=== PATIENT | female | born 1935 | race Caucasian/White ===

== ENCOUNTER 2018-12-18 10:53 | Emergency (ER) | payer MEDICARE ==
[~2018-12-18] VITALS: Ht 160 cm; Wt 67.1 kg
--- OUTSIDE RECORDS SUMMARY | 2018-12-18 10:56 | XMS REPORT | Continuity of Care Document ---
Author Author [employer] Organization [employer] Address Unknown Phone Unavailable Care Team Providers Care Conveyancer Name Role Phone [email or web address] Unavailable Unavailable Problems Problem Status Onset Date Classification Date Reported Comments Source Ataxia, unspecified 08/12/2017 11/12/2017 [facility] DX: I83=JDGPAORCR AND GIDDINESS, G31.84= Active 07/31/2017 [facility] DX: OSTEOPOROSIS Active 06/11/2017 [facility] M85.80 OTHER SPECIFIED DISORDERS OF BONE Active 05/08/2015 [facility] Cobalamin deficiency2 Active 04/10/2014 Problem 09/12/2018 Data migrated from [employer] on 11/04/14. [facility] Osteopenia4 Active 04/10/2014 Problem 05/13/2015 Data migrated from [email or web address] on 11/04/14. [facility] BLE DX:RT ANKLE SWELLING Active 01/24/2013 [facility] Anxiety Active Problem 09/12/2018 [facility] Chronic kidney disease stage 31 Active Problem 09/12/2018 Data migrated from [email or web address] on 11/04/14. [facility] Depression Active Problem 09/12/2018 [facility] Fatigue Active Problem 09/12/2018 [facility] Gastroesophageal reflux disease3 Active Problem 09/12/2018 Data migrated from [employer] on 11/04/14. [facility] History of fall Active Problem 09/12/2018 [facility] Cognitive impairment Active Problem 09/12/2018 [facility] Medicare annual wellness visit, subsequent Active Problem 09/12/2018 [facility] Degenerative joint disease of knee, right Active Problem 09/12/2018 [facility] Osteoporosis Active Problem 09/12/2018 [facility] Encounter for immunization Active Problem 09/12/2018 [facility] Unsteady gait Active Problem 09/12/2018 [facility] Urinary incontinence Active Problem 09/12/2018 [facility] Vitamin D deficiency4 Active Problem 09/12/2018 Data migrated from [employer] on 11/04/14. [facility] Cough Active Problem 09/12/2018 [facility] Sore throat Active Problem 09/12/2018 [facility] Memory loss Active Problem 06/06/2017 [facility] Eructation Active Problem 06/06/2017 [facility] Need for prophylactic vaccination and inoculation against influenza Resolved Problem 05/13/2015 [facility] Vitamin D deficiency5 Active Problem 05/13/2015 Data migrated from [employer] on 11/04/14. [facility] Dizziness and giddiness 11/12/2017 [facility] Chronic sinusitis, unspecified 11/12/2017 [facility] OTH DISRD OF BONE DENSITY AND STRUCTURE, Active [facility] AGE-RELATED OSTEOPOROSIS W/O CURRENT PAT Active [facility] DIZZINESS AND GIDDINESS Active [facility] Medications Medication Details Route Status Patient Instructions Ordering Provider Order Date Source Vitamin B12 1000 mcg/mL injectable solution 1,000 microgram=1 mL, IM, qMonth, # 10 mL, 0 Refill(s), [id number] Active 07/04/2017 [facility] Ranitidine 150 MG Oral Tablet [Zantac] 150 mg=1 tab, PO, BID, # 180 tab, 0 Refill(s), Pharmacy: [id number] Active 07/04/2017 [facility] Allergies, Adverse Reactions, Alerts No Known Medication Allergies Immunizations Immunization Date Given Site Status Last Updated Comments Source influenza virus vaccine, inactivated<sup>1</sup> 06/09/2018 Right Deltoid completed [place] Result Comment: Patient waited 15 min with no reaction. [facility] influenza virus vaccine, inactivated<sup>2</sup> 06/03/2017 Left Deltoid completed [place] Result Comment: Patient waited 15 minutes, no reaction noted. [facility] influenza virus vaccine, inactivated<sup>1</sup> 06/03/2017 Left Deltoid completed [place] Result Comment: Patient waited 15 minutes, no reaction noted. [facility] influenza virus vaccine, inactivated 05/28/2016 Left Deltoid completed [place] [facility] influenza virus vaccine, inactivated 03/08/2015 Left Deltoid completed [facility] Hx influenza vaccine-unspecified<sup>5</sup> 04/10/2014 completed [place] Result Comment: done high dose. Migrated from OBS ; Data migrated from [employer] on 07/10/2015. [facility] Hx influenza vaccine-unspecified<sup>4</sup> 04/10/2014 completed GE Result Comment: done high dose. Migrated from OBS ; Data migrated from [employer] on 07/10/2015. [facility] influenza virus vaccine, inactivated<sup>3</sup> 04/10/2014 Left Deltoid completed GE Result Comment: fluzone high dose [[id number]]. Migrated from OBS ; Data migrated from [employer] on 07/10/2015. [facility] influenza virus vaccine, inactivated<sup>2</sup> 04/10/2014 Left Deltoid completed GE Result Comment: fluzone high dose [[id number]]. Migrated from OBS ; Data migrated from [employer] on 07/10/2015. [facility] influenza virus vaccine, inactivated<sup>4</sup> 05/02/2013 Right Deltoid completed GE Result Comment: fluzone (>3 yrs.) [[id number]]. Migrated from OBS ; Data migrated from [employer] on 07/10/2015. [facility] influenza virus vaccine, inactivated<sup>3</sup> 05/02/2013 Right Deltoid completed GE Result Comment: fluzone (>3 yrs.) [[id number]]. Migrated from OBS ; Data migrated from [employer] on 07/10/2015. [facility] tetanus-diphtheria toxoids<sup>6</sup> 11/27/2010 completed GE Result Comment: historical. Migrated from OBS ; Data migrated from [employer] on 07/10/2015. [facility] tetanus-diphtheria toxoids<sup>5</sup> 11/27/2010 completed GE Result Comment: historical. Migrated from OBS ; Data migrated from [employer] on 07/10/2015. [facility] Results No Data Provided for This Section Pathology Reports No Data Provided for This Section Diagnostic Reports Report Value Date Source Brain wo contrast CT STUDY: Brain wo contrast CT 08/06/2017 2:34 PM [employer] Ordering Physician: Jeannine Bneson MD Patient Name: PRIYA BADILLO MR: [id number] : 1935; Age: 81 years y/o Female Clinical Indication: - R42 Dizziness and giddiness/ G31.84 Mild cognitive impairment, so stated/ R27.0 Ataxia, unspecified Comparison: None TECHNIQUE: Multiple contiguous transaxial noncontrast CT images were obtained through the head. Coronal and sagittal reformatted images were prepared. DLP: 822 mGy-cm FINDINGS: BRAIN PARENCHYMA: 1. 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 2. No evidence of acute intracranial hemorrhage, mass lesion, mass effect, midline shift, or extra-axial fluid collection. VENTRICLES: The lateral ventricles, third ventricle, fourth ventricle, and basilar cisterns are appropriate for degree of atrophy present. PARANASAL SINUSES: The right side of the sphenoid sinus is nearly completely opacified. The visualized portions of the remaining paranasal sinuses are clear. MASTOIDS: Clear. ORBITS: Abnormal small hyperattenuating right globe consistent with postoperative change. SOFT TISSUES: Indeterminate rounded soft tissue lesion measuring 1.3 cm in the right frontal scalp. SKULL: No acute fracture or suspicious osseous lesion. IMPRESSION: 1. 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 2. Mild chronic sinusitis. 3. Indeterminate right frontal scalp lesion should be correlated clinically. 4. Abnormal right globe should be correlated clinically. SL: TPAINTER- 08/06/2017 [facility] Bone Density Scan PROCEDURE: Bone Density Scan REASON FOR EXAM: See Clinic Indication CLINICAL INFORMATION M85.80 Other specified disorders of bone density and structure, unspecified site COMPARISON: None. FINDINGS: The lumbar spine bone mineral density is 1.134. This is 108% of the expected normal value, T-score is 0.8. The left hip bone mineral density is 1.008. This is 107% of the expected normal value, T-score is 0.5. The femoral neck bone mineral density is 0.846. IMPRESSION: 1. Normal bone mineral density of the lumbar spine. 2. Normal bone mineral density of the left hip. SL: 16 05/10/2015 [facility] Extremity lower venous doppler bilat US VENOUS ULTRASOUND BILATERAL LOWER EXTREMITY: Compression duplex imaging was done from the inguinal through the infra geniculate region of both lower extremities. The deep veins and saphenous veins are satisfactory visualized and are compressible without evidence of intraluminal thrombus. Satisfactory spontaneous and augmented flow signal is demonstrated. IMPRESSION: Negative venous ultrasound of the lower extremities. SL:01/26/2013 [facility] Ankle 3 views HISTORY: Swelling. RIGHT ANKLE 3 VIEWS: Nonspecific periarticular soft tissue swelling. Bones and joint spaces visualized appear otherwise normal. SL: 01/26/2013 [facility] Consultation Notes No Data Provided for This Section Discharge Summaries No Data Provided for This Section History and Physicals No Data Provided for This Section Vital Signs Vital Sign Value Date Comments Source BMI Calculated 24.5 06/03/2017 [facility] Weight 62.727 06/03/2017 [facility] Height 160.02 cm 06/03/2017 [facility] Temperature Oral (F) 98.0 F 06/03/2017 [facility] Respitory Rate 14 06/03/2017 [facility] Heart Rate 74 06/03/2017 [facility] Systolic (mm Hg) 127 06/03/2017 [facility] Diastolic (mm Hg) 82 06/03/2017 [facility] Encounters Location Location Details Encounter Type Encounter Number Reason For Visit Attending Provider ADM Date DC Date Status Source [facility] Outpatient [id number] BLE DX:RT ANKLE SWELLING MARCELLE MONTEZ 01/26/2013 [facility] Outpatient [id number] MARCELLE MONTEZ 03/08/2015 [facility] Outpatient [id number] MARCELLE MONTEZ 04/25/2015 [facility] Outpatient [id number] Marcelle Montez 05/10/2015 05/11/2015 [facility] Outpatient [id number] MARCELLE MONTEZ 07/26/2015 [facility] Outpatient [id number] MARCELLE MONTEZ 08/20/2015 [facility] Outpatient [id number] MARCELLE MONTEZ 11/12/2015 [facility] Outpatient [id number] MARCELLE MONTEZ 12/17/2015 [facility] Outpatient [id number] MARCELLE MONTEZ 05/08/2016 [facility] Outpatient [id number] MARCELLE MONTEZ 05/28/2016 [facility] Outpatient [id number] SHEEBA MCMILLAN 09/22/2016 [facility] Outpatient [id number] MARCELLE MONTEZ 06/03/2017 [facility] Primary [facility] Outpatient [id number] Marcelle Montez 06/03/2017 06/04/2017 [facility] Outpatient [id number] Marcelle Montez 06/19/2017 06/19/2017 [facility] Outpatient [id number] MARCELLE MONTEZ 07/01/2017 [facility] Phone Message [id number] 07/04/2017 07/06/2017 [facility] Outpatient [id number] Jeannine Majmundar 08/06/2017 08/07/2017 [facility] Outpatient [id number] MARCELLE MONTEZ 06/09/2018 Active [facility] Outpatient [id number] Marcelle Montez 09/03/2018 [facility] Ambulatory Pre-Reg [id number] Marcelle Montez 09/10/2018 09/10/2018 [facility] Procedures Procedure Code Date Perfomer Comments Source Influenza vaccination [id number] 06/09/2018 [facility] Tetanus diphtheria vaccination [id number] 11/27/2010 [facility] Cholecystectomy [id number] [facility] Eye procedure<sup>1</sup> 242866805 right eye [facility] Hysterectomy [id number] [facility] Suspension of bladder [id number] [facility] Cholecystectomy [id number] [facility] Eye procedure<sup>1</sup> [id number] right eye [facility] Hysterectomy [id number] [facility] Suspension of bladder [id number] [facility] Assessment and Plan No Data Provided for This Section Plan of Care No Data Provided for This Section Social History Social History Date Source Social History TypeResponse Substance Abuse Use: None. Exercise Exercise duration: 60. Exercise frequency: 1-2 times/week. Self assessment: Good condition. Exercise type: Ballroom dancing. Alcohol Never Smoking Status Never smoker; Exposure to Tobacco Smoke None; Cigarette Smoking Last 365 Days No; Reg Smoking Cessation Counseling No entered on: 06/09/18 05/28/2016 [facility] Social History TypeResponse Substance Abuse Use: None. Exercise Exercise duration: 60. Exercise frequency: 1-2 times/week. Self assessment: Good condition. Exercise type: Ballroom dancing. Alcohol Never Smoking Status Never smoker; Exposure to Tobacco Smoke None; Cigarette Smoking Last 365 Days No; Reg Smoking Cessation Counseling No entered on: 07/01/17 05/28/2016 [facility] Family History No Data Provided for This Section Advance Directives No Data Provided for This Section Functional Status No Data Provided for This Section
--- OUTSIDE RECORDS SUMMARY | 2018-12-18 10:57 | XMS REPORT | Summary of Care ---
Author Author [facility] Organization [facility] Address Unknown Phone Unavailable Encounter HQ Encntr_lucy(FIN) [id number] Date(s): 09/10/18 - 09/10/18 [facility] [address] [facility] [address] [place] [address]- [phone] Attending Physician: Marcelle Hutchinson MD Vital Signs No data available for this section Problem List Condition Effective Dates Status Health Status Informant Anxiety(Confirmed) Active Chronic kidney Active disease stage 3(Confirmed)1 Cobalamin 04/10/14 Active deficiency(Confirmed )2 Cough(Confirmed) Active Depression(Confirmed Active ) Fatigue(Confirmed) Active Gastroesophageal Active reflux disease(Confirmed)3 History of Active fall(Confirmed) Cognitive Active impairment(Confirmed ) Medicare annual Active wellness visit, subsequent(Confirmed ) Degenerative joint Active disease of knee, right(Confirmed) Osteoporosis(Confirm Active ed) Encounter for Active immunization(Confirm ed) Sore Active throat(Confirmed) Unsteady Active gait(Confirmed) Urinary Active incontinence(Confirm ed) Vitamin D Active deficiency(Confirmed )4 1Data migrated from [employer] on 11/04/14. 2Data migrated from [employer] on 11/04/14. 3Data migrated from [employer] on 11/04/14. 4Data migrated from [employer] on 11/04/14. Allergies, Adverse Reactions, Alerts Substance Reaction Severity Status NKDA Active Medications No data available for this section Results No data available for this section Immunizations Given and Recorded Vaccine Date Status Refusal Reason influenza virus vaccine, inactivated1 06/09/18 Given influenza virus vaccine, inactivated2 06/03/17 Given influenza virus vaccine, inactivated 05/28/16 Given influenza virus vaccine, inactivated 03/08/15 Given influenza virus vaccine, inactivated3 04/10/14 Given influenza virus vaccine, inactivated4 05/02/13 Given Hx influenza vaccine-unspecified5 04/10/14 Given tetanus-diphtheria toxoids6 11/27/10 Given 1Result Comment: Patient waited 15 min with no reaction. 2Result Comment: Patient waited 15 minutes, no reaction noted. 3Result Comment: fluzone high dose [[id number]]. Migrated from OBS ; Data migrated from [employer] on 07/10/2015. 4Result Comment: fluzone (>3 yrs.) [[id number]]. Migrated from OBS ; Data migrated from [employer] on 07/10/2015. 5Result Comment: done high dose. Migrated from OBS ; Data migrated from [employer] on 07/10/2015. 6Result Comment: historical. Migrated from OBS ; Data migrated from [employer] on 07/10/2015. Procedures Procedure Date Related Diagnosis Body Site Status Influenza vaccination 06/09/18 Completed Tetanus diphtheria vaccination 11/27/10 Completed Cholecystectomy Completed Eye procedure1 Completed Hysterectomy Completed Suspension of bladder Completed 1right eye Social History Social History Type Response Substance Abuse Use: None. Exercise Exercise duration: 60. Exercise frequency: 1-2 times/week. Self assessment: Good condition. Exercise type: Ballroom dancing. Alcohol Never Smoking Status Never smoker; Exposure to Tobacco Smoke None; Cigarette Smoking Last 365 Days No; Reg Smoking Cessation Counseling No entered on: 06/09/18 Assessment and Plan No data available for this section
--- OUTSIDE RECORDS SUMMARY | 2018-12-18 10:57 | XMS REPORT | Summary of Care ---
Author Author [facility] Organization [facility] Address Unknown Phone Unavailable Encounter HQ Osielr_lucy(FIN) [id number] Date(s): 06/19/17 - 06/19/17 [facility] [address] [place] [address]- Attending Physician: Marcelle Hutchinson MD Referring Physician: Marcelle Hutchinson MD Vital Signs No data available for this section Problem List Condition Effective Dates Status Health Status Informant Anxiety(Confirmed) Active Chronic kidney Active disease stage 3(Confirmed)1 Cobalamin 04/10/14 Active deficiency(Confirmed )2 Depression(Confirmed Active ) Fatigue(Confirmed) Active Gastroesophageal Active reflux disease(Confirmed)3 History of Active fall(Confirmed) Cognitive Active impairment(Confirmed ) Medicare annual Active wellness visit, subsequent(Confirmed ) Degenerative joint Active disease of knee, right(Confirmed) Osteoporosis(Confirm Active ed) Encounter for Active immunization(Confirm ed) Unsteady Active gait(Confirmed) Urinary Active incontinence(Confirm ed) [...] Status Refusal Reason influenza virus vaccine, inactivated1 06/03/17 Given influenza virus vaccine, inactivated 05/28/16 Given influenza virus vaccine, inactivated 03/08/15 Given influenza virus vaccine, inactivated2 04/10/14 Given influenza virus vaccine, inactivated3 05/02/13 Given Hx influenza vaccine-unspecified4 04/10/14 Given tetanus-diphtheria toxoids5 11/27/10 Given 1Result Comment: Patient waited 15 minutes, no reaction noted. 2Result Comment: fluzone high dose [[id number]]. Migrated from OBS ; Data migrated from [employer] on 07/10/2015. 3Result Comment: fluzone (>3 yrs.) [[id number]]. Migrated from OBS ; Data migrated from [employer] on 07/10/2015. 4Result Comment: done high dose. Migrated from OBS ; Data migrated from [employer] on 07/10/2015. 5Result Comment: historical. Migrated from OBS ; Data migrated from [employer] on 07/10/2015. Procedures Procedure Date Related Diagnosis Body Site Status Cholecystectomy Completed Eye procedure1 Completed Hysterectomy Completed [...] Smoking Cessation Counseling No entered on: 07/01/17 Assessment and Plan No data available for this section
--- OUTSIDE RECORDS SUMMARY | 2018-12-18 10:57 | XMS REPORT | Summary of Care ---
Author Author [facility] Organization [facility] Address Unknown Phone Unavailable Encounter HQ Teresita(FIN) [id number] Date(s): 08/06/17 - 08/06/17 [facility] [address] [place] [address]- Encounter Diagnosis Ataxia, unspecified (Final) - 08/11/17 Dizziness and giddiness (Final) - Chronic sinusitis, unspecified (Final) - Discharge Disposition: Home or Self Care Attending Physician: Jeannine Benson MD Referring Physician: Jeannine Benson MD Vital Signs No data available for [...] reaction noted. 2Result Comment: fluzone high dose [[id number]]. Migrated from OBS ; Data migrated from [employer] on 07/10/2015. 3Result Comment: fluzone (>3 yrs.) [[id number]]. Migrated from OBS ; Data migrated from [employer] on 07/10/2015. 4Result Comment: done high dose. Migrated from OBS ; Data migrated from [employer] on 07/10/2015. 5Result Comment: historical. Migrated from OBS ; Data migrated from [employer] on 07/10/2015. Procedures Procedure Date Related Diagnosis [...]
--- OUTSIDE RECORDS SUMMARY | 2018-12-18 10:57 | XMS REPORT | Summary of Care ---
Author Author [facility] Organization [facility] Address Unknown Phone Unavailable Encounter HQ Teresita(FIN) [id number] Date(s): 06/03/17 - 06/03/17 [facility] [address], [address] [place] [address]- [phone] Discharge Disposition: Home or Self Care Attending Physician: Marcelle Hutchinson MD Vital Signs Most recent to 1 oldest [Reference Range]: Height 160.02 cm (06/03/17 8:32 AM) Temperature Oral 98.0 DegF [96.4-99.1 DegF] (06/03/17 8:32 AM) Blood Pressure 127/82 mmHg [90-140/60-90 mmHg] (06/03/17 8:32 AM) Respiratory Rate 14 BRMIN [14-20 BRMIN] (06/03/17 8:32 AM) Peripheral Pulse 74 bpm Rate [60-100 bpm] (06/03/17 8:32 AM) Weight 62.727 kg (06/03/17 8:32 AM) Body Mass Index 24.5 m2 (06/03/17 8:32 AM) Problem List Condition Effective Dates Status Health Status Informant Memory Active loss(Confirmed) Anxiety(Confirmed) Active Eructation(Confirmed Active ) Chronic kidney Active disease stage 3(Confirmed)1 Cobalamin 04/10/14 Active deficiency(Confirmed )2 Depression(Confirmed Active ) Fatigue(Confirmed) Active Gastroesophageal Active reflux disease(Confirmed)3 History of Active fall(Confirmed) Medicare annual Active wellness visit, subsequent(Confirmed ) Degenerative joint Active disease of knee, right(Confirmed) Osteoporosis(Confirm Active ed) Encounter for Active immunization(Confirm ed) Unsteady Active gait(Confirmed) Urinary Active incontinence(Confirm ed) Vitamin D Active deficiency(Confirmed )4 1Data migrated from [employer] on 11/04/14. 2Data migrated from [employer] on 11/04/14. 3Data migrated from [employer] on 11/04/14. 4Data migrated from [employer] on 11/04/14. Allergies, Adverse Reactions, Alerts Substance Reaction Severity Status NKDA Active Medications No Known Medications Results No data available for this section [...] reaction noted. 2Result Comment: fluzone high dose [[id number]]. Migrated from OBS ; Data migrated from [employer] on 07/10/2015. 3Result Comment: fluzone (>3 yrs.) [[id number]]. Migrated from OBS ; Data migrated from [employer] on 07/10/2015. 4Result Comment: done high dose. Migrated from OBS ; Data migrated from [employer] on 07/10/2015. 5Result Comment: historical. Migrated from OBS ; Data migrated from [employer] on 07/10/2015. Procedures Procedure Date Related Diagnosis Body Site Cholecystectomy Eye procedure1 Hysterectomy Suspension of bladder 1right eye Social History Social History Type Response Substance Abuse Use: None. Exercise Exercise duration: 60. Exercise frequency: 1-2 times/week. Self assessment: Good condition. Exercise type: Ballroom dancing. Alcohol Never Smoking Status Never smoker; Exposure to Tobacco Smoke None; Cigarette Smoking Last 365 Days No; Reg Smoking Cessation Counseling No Assessment and Plan No data available for this section
--- OUTSIDE RECORDS SUMMARY | 2018-12-18 10:57 | XMS REPORT | Summary of Care ---
Author Author [facility] Organization [facility] Address Unknown Phone Unavailable Encounter HQ Chayantr_aliross(FIN) [phone] Date(s): 07/04/17 - 07/05/17 [facility] [address], [address] [place] [address]- [phone] Vital Signs No data available for this [...] Substance Reaction Severity Status NKDA Active Medications Vitamin B12 1000 mcg/mL injectable solution 1,000 microgram=1 mL, IM, qMonth, # 10 mL, 0 Refill(s), Pharmacy: [facility] Start Date: 07/04/17 Status: Ordered Zantac 150 oral tablet 150 mg=1 tab, PO, BID, # 180 tab, 0 Refill(s), Pharmacy: [id number] Start Date: 07/04/17 Stop Date: 10/02/17 Status: Ordered Results No data available for this section [...] reaction noted. 2Result Comment: fluzone high dose [[id number]]. Migrated from OBS ; Data migrated from [employer] on 07/10/2015. 3Result Comment: fluzone (>3 yrs.) [[id number]]. Migrated from OBS ; Data migrated from [employer] on 07/10/2015. 4Result Comment: done high dose. Migrated from OBS ; Data migrated from [employer] on 07/10/2015. 5Result Comment: historical. Migrated from OBS ; Data migrated from [employer] on 07/10/2015. Procedures Procedure Date Related Diagnosis [...]
--- OUTSIDE RECORDS SUMMARY | 2018-12-18 10:58 | XMS REPORT | Summary of Care ---
Author Author [facility] Organization [facility] Address Unknown Phone Unavailable Encounter HQ John_lucy(FIN) [phone] Date(s): 05/10/15 - 05/10/15 [facility] [address] [place] [address]- Discharge Disposition: Home Attending Physician: Marcelle Hutchinson MD Referring Physician: Marcelle Hutchinson MD Vital Signs No data available for this section Problem List Condition Effective Dates Status Health Status Informant Anxiety(Confirmed) Active Chronic kidney Active disease stage 31 Cobalamin 04/10/14 Active deficiency2 Fatigue(Confirmed) Active Gastroesophageal Active reflux disease3 Medicare annual Active wellness visit, subsequent(Confirmed ) Need for Resolved prophylactic vaccination and inoculation against influenza(Confirmed) Degenerative joint Active disease of knee, right(Confirmed) Osteopenia4 04/10/14 Active Urinary Active incontinence(Confirm ed) Vitamin D Active deficiency5 1Data migrated from [employer] on 11/04/14. 2Data migrated from [employer] on 11/04/14. 3Data migrated from [employer] on 11/04/14. 4Data migrated from [employer] on 11/04/14. 5Data migrated from [employer] on 11/04/14. Allergies, Adverse Reactions, Alerts Substance Reaction Severity Status NKDA Active Medications No data available for this section Results No data available for this section Immunizations Vaccine Date Refusal Reason influenza virus vaccine, inactivated 03/08/15 Procedures Procedure Date Related Diagnosis Body Site Cholecystectomy Eye procedure1 1right eye Social History Social History Type Response Substance Abuse Use: None. Exercise 1 Alcohol Never Smoking Status Never smoker; Exposure to Tobacco Smoke None; Cigarette Smoking Last 365 Days No; Reg Smoking Cessation Counseling No 1none Assessment and Plan No data available for this section
--- OUTSIDE RECORDS SUMMARY | 2018-12-18 10:58 | XMS REPORT ---
Author Author [facility] Address Unknown Phone Unavailable Care Team Providers Care Proposal Analyst Name Role Phone Unavailable Unavailable Payers Payer Name Policy Type Policy Number Effective Date Expiration Date Problems This patient has no known problems. Allergies, Adverse Reactions, Alerts Allergy Name Allergy Type Status Severity Reaction(s) Onset Date Inactive Date Treating Clinician Comments No Known Allergies DA Active U 2018-08-25 00:00:00 No Known Intolerances DA Active U 2009-01-26 00:00:00 Medications This patient has no known medications. Results Test Description Test Time Test Comments Text Results Atomic Results Result Comments B-TYPE NATRIURETIC PEPTIDE 2018-08-25 13:25:00 B-TYPE NATRIURETIC PEPTIDE (test code=BNP) 18.24 pgram/mL 0-100 BASIC METABOLIC [id number] 11:10:00* Test Item Value Reference Range Comments SODIUM (test code=NA) 139 mmol/L 136-145 POTASSIUM (test code=K) 4.6 mmol/L 3.5-5.1 CHLORIDE (test code=CL) 108.0 mmol/L 98-107 CARBON DIOXIDE (test code=CO2) 27.0 mmol/L 21-32 ANION GAP (test code=GAP) 8.6 10-20 GLUCOSE (test code=GLU) 142 mg/dL 74-106 BLOOD UREA NITROGEN (test code=BUN) 21 mg/dL 7-18 GLOMERULAR FILTRATION RATE (test code=GFR) 47 mL/min >=60 Estimated GFR by using Modified MDRD formula.Chronic kidney disease is defined as either kidney damageor GFR <60 mL/min/1.73 m2 for >3 months. CREATININE (test code=CREAT) 1.10 mg/dL 0.55-1.02 Note change in reference range due to change in reagent. BUN/CREATININE RATIO (test code=BUN/CREA) 18.9 1020 CALCIUM (test code=CA) 9.4 mg/dL 8.5-10.1 [id number] 11:10:00* Test Item Value Reference Range Comments MAGNESIUM (test code=MAG) 2.1 mg/dL 1.8-2.4 [id number] 11:10:00* Test Item Value Reference Range Comments TROPONIN-I (test code=TROPI) <0.015 ng/mL 0-0.045 CBC W/O [id number] 11:02:00* Test Item Value Reference Range Comments WHITE BLOOD CELL (test code=WBC) 8.1 K/mm3 4.5-12.5 RED BLOOD CELL (test code=RBC) 4.71 mill/mm3 3.7-5.2 HEMOGLOBIN (test code=HGB) 14.4 gram/dL 11.5-15.5 HEMATOCRIT (test code=HCT) 45.3 % 36.0-46.0 MEAN CELL VOLUME (test code=MCV) 96.2 fL 80-98 MEAN CELL HGB (test code=MCH) 30.6 picogram 27.0-33.0 MEAN CELL HGB CONCETRATION (test code=MCHC) 31.8 gram/dL 33.0-36.0 RED CELL DISTRIBUTION WIDTH (test code=RDW) 12.1 % 11.6-16.2 PLATELET COUNT (test code=PLT) 166 K/mm3 150-450 MEAN PLATELET VOLUME (test code=MPV) 9.7 fL 6.7-11.0 CBC W/O [id number] 10:59:00* Test Item Value Reference Range Comments WHITE BLOOD CELL (test code=WBC) K/mm3 4.5-12.5 RED BLOOD CELL (test code=RBC) mill/mm3 3.7-5.2 HEMOGLOBIN (test code=HGB) 14.4 gram/dL 11.5-15.5 HEMATOCRIT (test code=HCT) 45.3 % 36.0-46.0 MEAN CELL VOLUME (test code=MCV) fL 80-98 MEAN CELL HGB (test code=MCH) picogram 27.0-33.0 MEAN CELL HGB CONCETRATION (test code=MCHC) gram/dL 33.0-36.0 RED CELL DISTRIBUTION WIDTH (test code=RDW) % 11.6-16.2 PLATELET COUNT (test code=PLT) K/mm3 150-450 MEAN PLATELET VOLUME (test code=MPV) fL 6.7-11.0 - XR CHEST 1 [id number] 10:17:00 FAX: Saul Anthony [phone] [place]: St: REG Name: PRIYA QUIJANO [facility] : [birth year] Age/S: 82/F [address] [facility] Unit #: [id number] Loc: [place] [address] Phys: Saul Geller MD Acct: [id number] Dis Date: Status: REG ER PHONE #: [phone] Exam Date: 08/25/2018 0956 FAX #: [phone] Reason: SYNCOPE EXAMS: CPT CODE: [id number] XR CHEST 1 V [id number] HISTORY: Syncope. CO MPARISON: December 19, 2012. No acute infiltrates, effusion or congest ion is noted. Mild hyperinflation. The cardiac and mediastin al silhouette are within normal limits. IMPRESSION: No acute infiltrates, effusion or congestion. at 1017 Repor vic and signed by: Moe Duque M.D. CC: Angela Geller MD Technologist: RT ABDELRAHMAN(Artem) Trnscrd Date/Time/By: 08/25/2018 (1017) : By: [email or web address] Orig Print D/T: S: 08/25/2018 (1020) PAGE 1 Signed Report - CT HEAD/BRAIN W/O [id number] 10:14:00 Name: PRIYA BADILLO [facility] : 1935 Age/S: 82 / F [address] Unit #: [id number] Loc: [place] [address] Phys: Saul Geller MD Acct: [id number] Dis Date: Status: REG ER PHONE #: [phone] Exam Date: 08/25/2018 0939 FAX #: [phone] Reason: Syncope EXAMS: CPT CODE: [id number] CT HEAD/BRAIN W/O CONT [id number] HISTORY: Syncope. COMPARISON: December 20, 2012. CT brain without contrast: Automated exposure control. No acute intracranial bleeds or extra-axial collections are noted. No acute territorial vascular infarction is noted. The sulci, gyri, ventricles and subarachnoid spaces and the basilar cisterns are normal for patient's age. No herniation or hydrocephalus or midline shift is noted. Mild periventricular ischemic gliosis is noted. Age-appropriate atrophy is noted as well. Portions of the visualized paranasal sinuses demonstrated right sphenoid sinusitis. No obvious bony calvarial defect is noted. IMPRESSION: No acute intracranial bleeds or extra-axial collections. No acute territorial vascular infarction. No herniation or hydrocephalus or midline shift. Chronic white matter ischemic disease and atrophy . at 1014 Reported and signed by: Moe Duque M.D. CC: Saul Geller MD Technologist:Ivelisse Henning,RT(R),CT CTDI: DLP: Trnscb Date/Time: 08/25/2018 (1014) [email or web address] Orig Print D/T: S: 08/25/2018 (1018) CTDI: DLP: PAGE 1 Signed Report
[2018-12-18] MEDS ORDERED: TESSALON PERLE100 MG PO (11:45)
[2018-12-18] MEDS ORDERED: VENTOLIN HFA18 GM INH (11:45)
[2018-12-18] MEDS ORDERED: ZITHROMAX500 MG PO (11:45)
--- NOTE | 2018-12-18 12:37 | Diagnostic Imaging Report ---
Frontal and lateral views of the chest. HISTORY: Coughing COMPARISON: None available. DISCUSSION: Lungs: Prominence of the peribronchial interstitial markings. The upper lung zones appear mildly hyperinflated with associated mild bibasilar atelectasis. No consolidative pneumonia. Pleura: No pleural effusion or pneumothorax. Heart and mediastinum: The cardiomediastinal silhouette appears unremarkable. Bones and soft tissues: Appear unremarkable. IMPRESSION: Findings suggestive of obstructive lung disease and a nonspecific bronchitis, correlate for COPD. Signed by: Dr. Darius Olsen D.O., M.M.M. on 12/18/2018 12:33 PM
[2018-12-18 12:51] VITALS: BP 135/78
== END 2018-12-18 12:52 | disposition home or self-care (01) ==
LOC: ER 10:53 → FSED 12:52
DX: R05 Cough (principal); J20.9 Acute bronchitis, unspecified; J44.9 Chronic obstructive pulmonary disease, unspecified
CPT/HCPCS: 71046; 99282